=== PATIENT | male | born 1950 | race Caucasian/White ===

== ENCOUNTER 2018-10-23 11:00 | Outpatient (CLI) | payer MEDICARE, OTHER ==
[~2018-10-23] VITALS: Ht 180.3 cm; Wt 100.7 kg
[~2018-10-23 11:00] MED LIST: ACHD5005; ALBU8.5H4 IH; ASCO500T20 GT; ASP81TEC PO; ASPI-983 PO; BENZ100C18 PO; CARV12.5 PO; CARV25TA PO; CHOL500049 PO; CIPR-225 PO; CLPD75T PO; CNC1KV IJ; D50KC PO; FENO145T PO; FENO145T2 PO; HYDR-3455 PO; LRT10T; MELO7.5T46 PO; MULT-1029 PO; OMEG1CAP51 PO; RT-ALBUINH IH; SERT50TA9 PO; SILD100T PO; SITA1TAB2 PO; SITA1TAB6 PO; SMV10T PO; TEST90SO TD; TRAM50TA2 PO; UBID1CAP51 PO; VITA-198 PO; VNL75T PO
[2018-10-23] MEDS ORDERED: OMEG-131 PO (11:06)
[2018-10-23] MEDS ORDERED: FENO145T37 PO (11:06)
[2018-10-23] MEDS ORDERED: UBID1CAP53 PO (11:06)
[2018-10-23] MEDS ORDERED: MULT-1030 PO (11:06)
[2018-10-23] MEDS ORDERED: ZINC50TA51 PO (11:07)
[2018-10-23] MEDS ORDERED: MAGN400T39 PO (11:07)
== END 2018-10-23 11:11 | disposition home or self-care (01) ==
LOC: PREOP 11:00
PROVIDERS: ATTEND Surgery
DX: Z01.818 Encounter for other preprocedural examination (principal)

== ENCOUNTER 2018-10-25 08:43 | Day surgery (SDC) | payer MEDICARE, OTHER ==
[~2018-10-25] VITALS: Ht 180.3 cm; Wt 100.7 kg
[~2018-10-25 08:43] MED LIST changes: +FENO145T37 PO; +MAGN400T39 PO; +MULT-1030 PO; +OMEG-131 PO; +UBID1CAP53 PO; +ZINC50TA51 PO
--- OUTSIDE RECORDS SUMMARY | 2018-10-25 08:48 | XMS REPORT | Continuity of Care Document ---
Author Author [facility] Organization [facility] Address Unknown Phone Unavailable Allergies Active Description Code Type Severity Reaction Onset Reported/Identified Relationship to Patient Clinical Status Yes No Known Drug Allergies [id number] Drug Allergy Mild N/A 04/28/2008 Medications There is no data. Problems Date Dx Coded Attending Type Code Diagnosis Diagnosed By 11/03/2011 Ot 705.83 HIDRADENITIS 11/03/2011 Ot V58.69 OTH MED,LT, CURRENT USE 09/04/2013 KRISTINA JESUS DO Ot 211.3 BENIGN NEOPLASM LG BOWEL 09/04/2013 KRISTINA JESUS DO Ot 562.10 DIVERTICULOSIS COLON (W/O MENT OF HEMORR 09/04/2013 KRISTINA JESUS DO Ot V76.51 SCREEN MAL NEOP-COLON 05/24/2014 VINNY SCHUSTER MD Ot 721.3 LUMBOSACRAL SPONDYLOSIS 05/24/2014 VINNY SCHUSTER MD Ot 722.52 LUMB/LUMBOSAC DISC DEGEN 05/24/2014 VINNY SCHUSTER MD Ot 729.1 MYALGIA AND MYOSITIS NOS 05/24/2014 VINNY SCHUSTER MD Ot V58.69 OTH MED,LT,CURRENT USE 06/05/2014 Ot 780.4 06/05/2014 Ot 784.0 06/05/2014 Ot 433.30 06/05/2014 Ot 250.00 06/05/2014 Ot 705.83 06/05/2014 Ot V72.63 06/05/2014 Ot V72.81 06/05/2014 AKIKO BROCK C MEDIA ACCOUNT EXECUTIVE Ot 564.00 06/05/2014 ROMEO BROCKRICIA C MEDIA ACCOUNT EXECUTIVE Ot 571.8 06/05/2014 ROMEO BROCKRICIA C MEDIA ACCOUNT EXECUTIVE Ot 789.09 06/17/2014 MARÍA MCGILL DO Ot 722.52 06/17/2014 MARÍA MCGILL DO Ot 733.90 06/17/2014 MCGILL DO MARÍA Wiggins Ot 722.52 06/17/2014 MCGILL DO, MARÍA Wiggins Ot 733.90 06/17/2014 MCGILL DO MARÍA Wiggins Ot 722.52 06/17/2014 MCGILL DO, MARÍA Wiggins Ot 733.90 06/17/2014 MCGILL DO MARÍA Wiggins Ot 722.52 06/17/2014 MCGILL DO MARÍA Wiggins Ot 733.90 06/19/2014 MCGILL DO MARÍA Wiggins Ot 722.52 06/19/2014 MCGILL DO MARÍA Wiggins Ot 733.90 09/03/2014 MCGILL DO MARÍA Wiggins Ot 722.52 09/03/2014 MCGILL DO MARÍA Wiggins Ot 733.90 09/10/2014 MCGILL DO MARÍA Wiggins Ot 722.52 09/10/2014 MCGILL DO MARÍA Wiggins Ot 733.90 10/28/2014 VINNY SCHUSTER MD Ot 722.52 LUMB/LUMBOSAC DISC DEGEN 03/04/2015 Ot 780.4 03/04/2015 Ot 784.0 03/04/2015 Ot 433.30 03/04/2015 Ot 250.00 03/04/2015 Ot 705.83 03/04/2015 Ot V72.63 03/04/2015 Ot V72.81 03/04/2015 Ot 414.00 03/04/2015 AKIKO MCGILL FLAKEBOARD LINE TENDER Ot 715.37 03/04/2015 KRISTINA JESUS DO Ot V72.84 03/04/2015 AKIKO BROCK MEDIA ACCOUNT EXECUTIVE Ot 564.00 03/04/2015 AKIKO BROCK MEDIA ACCOUNT EXECUTIVE Ot 571.8 03/04/2015 AKIKO BROCK MEDIA ACCOUNT EXECUTIVE Ot 789.09 03/04/2015 AKIKO MCGILL FLAKEBOARD LINE TENDER Ot 241.0 03/04/2015 MARÍA MCGILL DO Ot 722.52 03/04/2015 MCGILL DO MARÍA Rosalie Ot 733.90 04/01/2015 MCGILLMARÍA CHEUNG DO Ot 780.2 04/11/2015 MARÍA MCGILL DO Ot 780.2 04/11/2015 MARIO ALBERTO GODFREY, TWILA Yoon Ot 478.5 04/11/2015 TWILA LLANES MD Ot V72.63 04/11/2015 TWILA LLANES MD Ot V74.8 04/11/2015 TWILA LLANES MD Ot 305.1 TOBACCO USE DISORDER 04/11/2015 TWILA LLANES MD Ot 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 04/11/2015 TWILA LLANES MD Ot 784.42 DYSPHONIA 04/11/2015 TWILA LLANES MD Ot V58.69 OTH MED,LT,CURRENT USE 05/22/2015 TWILA LLANES MD Ot 478.5 05/22/2015 TWILA LLANES MD Ot V72.63 05/22/2015 TWILA LLANES MD Ot V74.8 08/11/2015 Ot 780.4 08/11/2015 Ot 784.0 08/11/2015 Ot 433.30 08/11/2015 Ot 250.00 08/11/2015 Ot 705.83 08/11/2015 Ot V72.63 08/11/2015 Ot V72.81 08/11/2015 MARÍA MCGILL DO Ot 722.52 08/11/2015 MARÍA MCGILL DO Ot 733.90 10/24/2015 Ot M51.16 INTERVERTEBRAL DISC DISORDERS W RADICULO 10/24/2015 Ot Z79.899 OTHER SNF (CURRENT) DRUG THERAPY 11/03/2015 Ot M51.16 11/03/2015 Ot Z79.899 11/21/2015 VINNY SCHUSTER MD Ot M51.16 INTERVERTEBRAL DISC DISORDERS W RADICULO 11/21/2015 VINNY SCHUSTER MD Ot Z79.899 OTHER SNF (CURRENT) DRUG THERAPY 11/21/2015 VINNY SCHUSTER MD Ot M54.5 LOW BACK PAIN 12/11/2015 VINNY SCHUSTER MD Ot M54.5 LOW BACK PAIN 12/24/2015 Ot 250.00 12/24/2015 Ot 272.4 12/24/2015 Ot 401.9 12/24/2015 Ot 412 12/24/2015 Ot 789.00 12/24/2015 Ot 789.01 12/24/2015 Ot 790.4 12/24/2015 Ot V58.66 12/24/2015 Ot V58.69 01/22/2016 VINNY SCHUSTER MD Ot M54.5 LOW BACK PAIN 04/24/2016 Ot 250.00 04/24/2016 Ot 272.4 04/24/2016 Ot 401.9 04/24/2016 Ot 412 04/24/2016 Ot 789.00 04/24/2016 Ot 789.01 04/24/2016 Ot 790.4 04/24/2016 Ot V58.66 04/24/2016 Ot V58.69 04/30/2016 Ot 250.00 DIAB CATRINA WO COMPL, TYPE II OR UNSPEC TY 04/30/2016 Ot 705.83 HIDRADENITIS 04/30/2016 Ot V72.63 PRE- PROCEDURAL LABORATORY EXAMINATION 04/30/2016 Ot V72.81 EXAM-PRE- OPERATIVE CARDIOVASCULAR 04/30/2016 Ot 414.00 CORON ATHEROSCLER NOS TYPE VESSEL, NATIV 04/30/2016 AKIKO MCGILL Ot 715.37 LOC OSTEOARTH NOS-ANKLE 04/30/2016 KRISTINA JESUS DO Ot V72.84 EXAM PRE-OPERATIVE NOS 04/30/2016 RIDAKIKO HUERTA MEDIA ACCOUNT EXECUTIVE Ot 564.00 UNSPEC CONSTIPATION 04/30/2016 AKIKO BROCK MEDIA ACCOUNT EXECUTIVE Ot 571.8 CHRONIC LIVER DIS NEC 04/30/2016 AKIKO BROCK MEDIA ACCOUNT EXECUTIVE Ot 789.09 ABDOMINAL PAIN, OTHER SPECIFIED SITE 04/30/2016 AKIKO MCGILL FLAKEBOARD LINE TENDER Ot 241.0 NONTOX UNINODULAR GOITER 04/30/2016 MARÍA MCGILL DO Ot 722.52 LUMB/LUMBOSAC DISC DEGEN 04/30/2016 MARÍA MCGILL DO Ot 733.90 BONE CARTILAGE DIS NOS 04/30/2016 MARÍA MCGILL DO Ot 780.2 SYNCOPE AND COLLAPSE 04/30/2016 TWILA LLANES MD Ot 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 04/30/2016 TWILA LLANES MD Ot V72.63 PRE-PROCEDURAL LABORATORY EXAMINATION 04/30/2016 TWILA LLANES MD Ot V74.8 SCREEN-BACTERIAL DIS NEC 04/30/2016 VINNY SCHUSTER MD Ot M54.5 LOW BACK PAIN 04/30/2016 MARÍA MCGILL DO Ot 722.52 LUMB/LUMBOSAC DISC DEGEN 04/30/2016 MARÍA MCGILL DO Ot 733.90 BONE CARTILAGE DIS NOS 04/30/2016 MARÍA MCGILL DO Ot 722.52 LUMB/LUMBOSAC DISC DEGEN 04/30/2016 MARÍA MCGILL DO Ot 733.90 BONE CARTILAGE DIS NOS 04/30/2016 MARÍA MCGILL DO, Ot I25.10 ATHSCL HEART DISEASE OF [place] CORONARY 04/30/2016 MARÍA MCGILL DO Ot I25.10 ATHSCL HEART DISEASE OF [place] CORONARY 04/30/2016 MARÍA MCGILL DO Ot 722.52 LUMB/LUMBOSAC DISC DEGEN 04/30/2016 MARÍA MCGILL DO Ot 733.90 BONE CARTILAGE DIS NOS 04/30/2016 MARÍA MCGILL DO Ot I25.10 ATHSCL HEART DISEASE OF [place] CORONARY 04/30/2016 MARÍA MCGILL DO Ot I25.10 ATHSCL HEART DISEASE OF [place] CORONARY 05/03/2016 MARÍA MCGILL DO, Ot I25.10 ATHSCL HEART DISEASE OF [place] CORONARY 05/06/2016 MARÍA MCGILL DO, Ot I25.10 ATHSCL HEART DISEASE OF [place] CORONARY 05/21/2016 MARÍA MCGILL DO, Ot I25.10 ATHSCL HEART DISEASE OF [place] CORONARY 05/27/2016 KRISTINA JESUS DO Ot E11.9 TYPE 2 DIABETES MELLITUS WITHOUT COMPLIC 05/27/2016 KRISTINA JESUS DO Ot F17.210 NICOTINE DEPENDENCE, CIGARETTES, UNCOMPL 05/27/2016 KRISTINA JESUS DO Ot F43.10 POST-TRAUMATIC STRESS DISORDER, UNSPECIF 05/27/2016 KRISTINA JESUS DO Ot I25.10 ATHSCL HEART DISEASE OF [place] CORONARY 05/27/2016 KRISTINA JESUS DO Ot J44.9 CHRONIC OBSTRUCTIVE PULMONARY DISEASE, U 05/27/2016 KRISTINA JESUS DO Ot K59.03 DRUG INDUCED CONSTIPATION 05/27/2016 KRISTINA JESUS DO Ot T40.2X5A ADVERSE EFFECT OF OTHER OPIOIDS, INITIAL 05/27/2016 KRISTINA JESUS DO Ot Z95.5 PRESENCE OF CORONARY ANGIOPLASTY IMPLANT 05/27/2016 KRISTINA JESUS DO Ot E11.9 TYPE 2 DIABETES MELLITUS WITHOUT COMPLIC 05/27/2016 KRISTINA JESUS DO Ot F17.210 NICOTINE DEPENDENCE, CIGARETTES, UNCOMPL 05/27/2016 KRISTINA JESUS DO Ot F43.10 POST-TRAUMATIC STRESS DISORDER, UNSPECIF 05/27/2016 KRISTINA JESUS DO Ot I25.10 ATHSCL HEART DISEASE OF [place] CORONARY 05/27/2016 KRISTINA JESUS DO Ot J44.9 CHRONIC OBSTRUCTIVE PULMONARY DISEASE, U 05/27/2016 KRISTINA JESUS DO Ot K59.03 DRUG INDUCED CONSTIPATION 05/27/2016 KRISTINA JESUS DO Ot T40.2X5A ADVERSE EFFECT OF OTHER OPIOIDS, INITIAL 05/27/2016 KRISTINA JESUS DO Ot Z95.5 PRESENCE OF CORONARY ANGIOPLASTY IMPLANT 06/08/2016 MARÍA MCGILL DO Ot I25.10 ATHSCL HEART DISEASE OF [place] CORONARY 06/24/2016 Ot 250.00 06/24/2016 Ot 272.4 06/24/2016 Ot 401.9 06/24/2016 Ot 412 06/24/2016 Ot 789.00 06/24/2016 Ot 789.01 06/24/2016 Ot 790.4 06/24/2016 Ot V58.66 06/24/2016 Ot V58.69 09/22/2016 Ot 250.00 09/22/2016 Ot 272.4 09/22/2016 Ot 401.9 09/22/2016 Ot 412 09/22/2016 Ot 789.00 09/22/2016 Ot 789.01 09/22/2016 Ot 790.4 09/22/2016 Ot V58.66 09/22/2016 Ot V58.69 06/24/2017 Ot 250.00 06/24/2017 Ot 272.4 06/24/2017 Ot 401.9 06/24/2017 Ot 412 06/24/2017 Ot 789.00 06/24/2017 Ot 789.01 06/24/2017 Ot 790.4 06/24/2017 Ot V58.66 06/24/2017 Ot V58.69 09/22/2018 Ot 250.00 09/22/2018 Ot 272.4 09/22/2018 Ot 401.9 09/22/2018 Ot 412 09/22/2018 Ot 789.00 09/22/2018 Ot 789.01 09/22/2018 Ot 790.4 09/22/2018 Ot V58.66 09/22/2018 Ot V58.69 10/20/2018 KACIE LAMBERT MD, Ot Z01.818 ENCOUNTER FOR OTHER PREPROCEDURAL EXAMIN 10/23/2018 KACIE LAMBERT MD, Ot Z01.818 ENCOUNTER FOR OTHER PREPROCEDURAL EXAMIN 10/23/2018 KACIE LAMBERT MD, Ot Z01.818 ENCOUNTER FOR OTHER PREPROCEDURAL EXAMIN 10/23/2018 KRISTINA JESUS DO Ot V72.84 EXAM PRE-OPERATIVE NOS 10/23/2018 RIDBRADLEY AKIKO Brownlee APRN Ot 564.00 UNSPEC CONSTIPATION 10/23/2018 RIDINGSAKIKO APRN Ot 571.8 CHRONIC LIVER DIS NEC 10/23/2018 RIDINGS, AKIKO Brownlee APRN Ot 789.09 ABDOMINAL PAIN, OTHER SPECIFIED SITE 10/23/2018 AKIKO MCGILL FLAKEBOARD LINE TENDER Ot 241.0 NONTOX UNINODULAR GOITER 10/23/2018 MARÍA MCGILL DO Ot 722.52 LUMB/LUMBOSAC DISC DEGEN 10/23/2018 MARÍA MCGILL DO Ot 733.90 BONE CARTILAGE DIS NOS 10/23/2018 MARÍA MCGILL DO Ot 780.2 SYNCOPE AND COLLAPSE 10/23/2018 TWILA LLANES MD Ot 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 Results Test Result Range Complete blood count (CBC) with automated white blood cell (WBC) differential - 05/27/16 05:37 Blood leukocytes automated count (number/volume) 13.6 10*3/uL 4.3-11.0 Blood erythrocytes automated count (number/volume) 4.72 10*6/uL 4.35-5.85 Venous blood hemoglobin measurement (mass/volume) 13.6 g/dL 13.3-17.7 Blood hematocrit (volume fraction) 41 % 40-54 Automated erythrocyte mean corpuscular volume 86 [foz_us] 80-99 Automated erythrocyte mean corpuscular hemoglobin (mass per erythrocyte) 29 pg 25-34 Automated erythrocyte mean corpuscular hemoglobin concentration measurement ( mass/volume) 33 g/dL 32-36 Automated erythrocyte distribution width ratio 14.8 % 10.0-14.5 Automated blood platelet count (count/volume) 435 10*3/uL 130-400 Automated blood platelet mean volume measurement 9.8 [foz_us] 7.4-10.4 Automated blood neutrophils/100 leukocytes 74 % 42-75 Automated blood lymphocytes/100 leukocytes 16 % 12-44 Blood monocytes/100 leukocytes 9 % 0-12 Automated blood eosinophils/100 leukocytes 1 % 0-10 Automated blood basophils/100 leukocytes 1 % 0-10 Blood neutrophils automated count (number/volume) 10.1 10*3 1.8-7.8 Blood lymphocytes automated count (number/volume) 2.2 10*3 1.0-4.0 Blood monocytes automated count (number/volume) 1.2 10*3 0.0-1.0 Automated eosinophil count 0.1 10*3/uL 0.0-0.3 Automated blood basophil count (count/volume) 0.1 10*3/uL 0.0-0.1 Comprehensive metabolic panel - 05/27/16 05:37 Serum or plasma sodium measurement (moles/volume) 136 mmol/L 135-145 Serum or plasma potassium measurement (moles/volume) 3.6 mmol/L 3.6-5.0 Serum or plasma chloride measurement (moles/volume) 106 mmol/L 98-107 Carbon dioxide 20 mmol/L 21-32 Serum or plasma anion gap determination (moles/volume) 10 mmol/L 5-14 Serum or plasma urea nitrogen measurement (mass/volume) 9 mg/dL 7-18 Serum or plasma creatinine measurement (mass/volume) 0.78 mg/dL 0.60-1.30 Serum or plasma urea nitrogen/creatinine mass ratio 12 NRG Serum or plasma creatinine measurement with calculation of estimated glomerular filtration rate > NRG Serum or plasma glucose measurement (mass/volume) 128 mg/dL 70-105 Serum or plasma calcium measurement (mass/volume) 8.6 mg/dL 8.5-10.1 Serum or plasma total bilirubin measurement (mass/volume) 0.4 mg/dL 0.1-1.0 Serum or plasma alkaline phosphatase measurement (enzymatic activity/volume) 86 U/L 40-136 Serum or plasma aspartate aminotransferase measurement (enzymatic activity/ volume) 19 U/L 5-34 Serum or plasma alanine aminotransferase measurement (enzymatic activity/volume ) 19 U/L 0-55 Serum or plasma protein measurement (mass/volume) 6.4 g/dL 6.4-8.2 Serum or plasma albumin measurement (mass/volume) 3.5 g/dL 3.2-4.5 Encounters ACCT No. Visit Date/Time Discharge Status Pt. Type Provider Facility Loc./Unit Complaint [id number] 10/23/2018 11:00:00 10/23/2018 11:11:00 DIS Outpatient KACIE LAMBERT MD [facility] PREOP COLONOSCOPY [id number] 05/26/2016 04:18:00 05/27/2016 16:00:00 DIS Inpatient KRISTINA JESUS DO [facility] 4TH ABD PAIN,CONSTIPATION [id number] 04/30/2016 06:44:00 04/30/2016 23:59:59 CLS Outpatient MARÍA MCGILL DO [facility] CARD I25.10- ATHEROSCLEROTIC HEART DISEASE OF [place] COR [id number] 11/21/2015 08:11:00 11/21/2015 09:06:00 DIS Outpatient VINNY SCHUSTER MD [facility] CARD DISC DISORDER [id number] 11/20/2015 11:02:00 11/20/2015 23:59:59 CLS Outpatient VINNY SCHUSTER MD [facility] RAD LOW BACK PAIN [id number] 04/11/2015 07:55:00 04/11/2015 11:45:00 DIS Outpatient TWILA LLANES MD [facility] SDC LEFT VOCAL CORD LESION [id number] 04/08/2015 09:08:00 04/08/2015 23:59:59 CLS Outpatient TWILA LLANES MD [facility] PREOP LEFT VOCAL CORD LESION [id number] 03/04/2015 06:41:00 03/04/2015 23:59:59 CLS Outpatient MARÍA MCGILL DO [facility] CARD SYNCOPE [id number] 10/28/2014 15:09:00 10/28/2014 17:38:00 DIS Outpatient VINNY SCHUSTER MD [facility] CARD DDD [id number] 05/24/2014 08:31:00 05/24/2014 10:21:00 DIS Outpatient VINNY SCHUSTER MD [facility] CARD DDD [id number] 05/17/2014 09:54:00 05/17/2014 23:59:59 CLS Outpatient MARÍA MCGILL DO [facility] RAD CYSTIC LEISON L-3, [id number] 09/11/2013 12:42:00 09/11/2013 23:59:59 CLS Outpatient AKIKO MCGILL FLAKEBOARD LINE TENDER [facility] RAD THYROMEGLY, THYROID MASS [id number] 09/04/2013 12:04:00 09/04/2013 15:25:00 DIS Outpatient KRISTINA JESUS DO [facility] SDC SCREENING [id number] 08/29/2013 07:30:00 08/29/2013 23:59:59 CLS Outpatient KRISTINA JESUS DO [facility] PREOP SCREENING [id number] 08/27/2013 12:17:00 08/27/2013 23:59:59 CLS Outpatient RIDINGSAKIKO MEDIA ACCOUNT EXECUTIVE [facility] RAD RT ABD PAIN, CONSTIPATION [id number] 08/27/2013 12:08:00 08/27/2013 23:59:59 CLS Preadmit RIDINGSAKIKO MEDIA ACCOUNT EXECUTIVE [facility] RAD RT ABD PAIN, CONSTIPATION [id number] 12/21/2012 12:17:00 12/21/2012 23:59:59 CLS Outpatient AKIKO MCGILL FLAKEBOARD LINE TENDER [facility] RAD L FOOT PAIN [id number] 10/25/2018 09:30:00 PEN Preadmit KACIE LAMBERT MD [facility] ENDO SCREENING/HX POLYPS [id number] 10/30/2015 08:36:00 Document Registration [id number] 10/10/2012 06:44:00 Document Registration [id number] 11/03/2011 05:39:00 Document Registration [id number] 11/01/2011 08:01:00 Document Registration [id number] 07/07/2010 06:09:00 Document Registration [id number] 07/03/2010 10:43:00 Document Registration [id number] 04/27/2008 07:10:00 Document Registration
[2018-10-25] MEDS ORDERED: NS IV 500 ML 500 ML IV PRN (08:51)
[2018-10-25] MEDS ORDERED: NS IV 500 ML 500 ML ONE (08:55)
[2018-10-25] MEDS ORDERED: MIDAZOLAM 2 MG/2 ML (VERSED) VIAL IVP ONE (09:00)
[2018-10-25] MEDS ORDERED: fentaNYL INJECTION 100 MCG/2 ML AMP IVP ONE (09:00)
[2018-10-25] MEDS ORDERED: LIDOCAINE JELLY 2% 6 ML SYRINGE MM PRN (09:00)
[2018-10-25 09:11] VITALS: BP 146/78
[2018-10-25] MEDS ORDERED: MIDAZOLAM 2 MG/2 ML (VERSED) VIAL ONE ×6 (09:31→09:52)
[2018-10-25] MEDS ORDERED: fentaNYL INJECTION 100 MCG/2 ML AMP ONE (09:31)
[2018-10-25] MEDS ORDERED: LIDOCAINE JELLY 2% 6 ML SYRINGE ONE (09:31)
--- NOTE | 2018-10-25 10:18 | Conscious Sedation/ASA ---
Conscious Sedation Pre-Proced Time 09:00 ASA Score 2 For ASA 3 and 4: Consider anesthesia and medical clearance. Also, for patients with a history of failed moderate sedation consider anesthesia. Airway Lungs Heart ASA score ASA 1: a normal healthy patient ASA 2: a patient with a mild systemic disease (mid diabetes, controlled hypertension, obesity ASA 3: a patient with a severe systemic disease that limits activity (angina , COPD, prior Myocardial infarction) ASA 4: a patient with an incapacitating disease that is a constant threat to life (CHF, renal failure) ASA 5: a moribund patient not expected to survive 24 hrs. (ruptured aneurysm) ASA 6: a declared brain- patient whose organs are being harvested. For emergent operations, add the letter E after the classification Mallampati Classification Grade 2 Sedation Plan Analgesia, Amnesia, Plan communicated to team members, Discussed options with patient/fam, Discussed risks with patient/fam The patient is an appropriate candidate to undergo the planned procedure, sedation, and anesthesia. The patient immediately re-assessed prior to indication. KACIE LAMBERT MD Oct 25, 2018 10:18
--- NOTE | 2018-10-25 10:19 | Progress Note-Pre Operative ---
Pre-Operative Progress Note H&P Reviewed The H&P was reviewed, patient examined and no changes noted. Date Seen by Provider: Oct 25, 2018 Time Seen by Provider: 09:00 Date H&P Reviewed: Oct 25, 2018 Time H&P Reviewed: 09:00 Pre-Operative Diagnosis: screening colonoscopy KACIE LAMBERT MD Oct 25, 2018 10:19
--- NOTE | 2018-10-25 10:20 | Progress Note-Post Operative ---
Post-Operative Progess Note Surgeon (s)/Stone Banker (s) Surgeon KACIE LAMBERT MD Stone Banker: none Pre-Operative Diagnosis screening colonoscopy Post-Operative Diagnosis mild chronic stage 2 ext and int hemorrhoids. Procedure & Operative Findings Date of Procedure 10/25/18 Procedure Performed/Findings Colonoscopy Anesthesia Type cs Estimated Blood Loss Estimated blood loss (mL): minimal Specimens/Packing Specimens Removed none KACIE LAMBERT MD Oct 25, 2018 10:20
--- NOTE | 2018-10-25 10:22 | Discharge Inst-Surgical ---
D/C Lap Instructions-FAUSTO Follow Up 10 years Activity as tolerated High Fiber Diet 25g or more per day Avoid Alcohol, Caffeine, Spicy [place] and Acid foods. Drink 64 fluid oz or more of fluids per day. Symptoms to Report: Fever over 101 degree F, Nausea/Vomiting If any problems/questions: Contact your physician or go to Emergency Room KACIE LAMBERT MD Oct 25, 2018 10:22
[2018-10-25 10:30] VITALS: BP 110/60
[2018-10-25] MEDS ORDERED: HYDROcodone/APAP 5 MG/325 MG (LORTAB) TAB PO PRN (10:30)
[2018-10-25] MEDS ORDERED: morphine INJ 10 MG/ML 1ML (SYR OR VIAL) IV PRN (10:30)
[2018-10-25] MEDS ORDERED: ONDANSETRON 4 MG/2 ML (SDV) Z0FRAN IV PRN (10:30)
[2018-10-25] MEDS ORDERED: ACETAMINOPHEN 325 MG TABLET PO PRN (10:30)
[2018-10-25 11:00] VITALS: BP 131/73
[2018-10-25 11:10] VITALS: BP 131/73
--- NOTE | 2018-10-25 14:40 | OPERATIVE REPORT ---
DATE OF SERVICE: 10/25/2018 ATTENDING PRIMARY CARE PHYSICIAN: Dr. Miguel Barahona. PREOPERATIVE DIAGNOSIS: Screening colonoscopy. POSTOPERATIVE DIAGNOSIS: Mild chronic stage II external and internal hemorrhoids. PROCEDURE: Colonoscopy. SURGEON: Kacie Lambert MD ANESTHESIA: Conscious sedation. ESTIMATED BLOOD LOSS: Minimal. FINDINGS: Mild chronic stage II external and internal hemorrhoids, not actively edematous nor inflamed and no bleeding. The remainder of the rectum and colon were normal. There were no polyps or any neoplasms identified. DISPOSITION: The patient tolerated the procedure well. The patient is a 68-year-old male in need of a screening colonoscopy. His last colonoscopy was around 2013 and he states that he did have some polyps which were biopsied and found to be benign. He states that he is otherwise doing well. He does report occasional episodes of constipation; however, no red blood per rectum nor any dark tarry stools. He also does not report any family history of colon cancer. DESCRIPTION OF PROCEDURE: The patient was brought to the endoscopy suite, laid in the left lateral decubitus position. After adequate IV pain and sedative medications and conscious sedation anesthesia, a digital rectal examination was performed. Mild chronic stage II external and internal hemorrhoids were identified, which were not actively edematous nor inflamed and no bleeding. Normal sphincter tone was felt and there were no palpable masses. Prostate gland was palpable and appeared normal. The endoscope was then intubated to the anus and rectum gently insufflated. The endoscope was then advanced through the valves of [place] of the rectum with no polyps or any neoplasms identified. The endoscope was then advanced to the sigmoid colon where no diverticulosis identified. The endoscope was then advanced to the remainder of the descending, transverse and ascending colon to the cecum. These segments were normal. There were no polyps or any neoplasms identified throughout the colon or rectum. The endoscope was then slowly withdrawn while taking a second look and suctioning of residual air with no additional findings. The patient tolerated the procedure well. We will recommend medical management with high fiber diet with at least 30 grams of fiber daily as well as significant amounts of water on a daily basis to promote soft stools daily as well. He does not need another colonoscopy for another 10 years; however, sooner if he becomes symptomatic. Job ID: [id number] DocumentID: [id number] Dictated Date: 10/25/2018 10:35:19 Senior Hardware Engineer Date: 10/25/2018 14:39:58 Dictated By: KACIE LAMBERT MD
== END 2018-10-25 11:10 | disposition home or self-care (01) ==
LOC: ENDO 08:43
PROVIDERS: ATTEND Surgery
DX: Z12.11 Encounter for screening for malignant neoplasm of colon (principal); K64.1 Second degree hemorrhoids; Z86.010 Personal history of colon polyps; I10 Essential (primary) hypertension; E78.00 Pure hypercholesterolemia, unspecified; I25.10 Atherosclerotic heart disease of native coronary artery without angina pectoris; E11.9 Type 2 diabetes mellitus without complications; Z79.82 Long term (current) use of aspirin; Z79.84 Long term (current) use of oral hypoglycemic drugs; Z79.899 Other long term (current) drug therapy; Z87.891 Personal history of nicotine dependence; Z80.41 Family history of malignant neoplasm of ovary

== ENCOUNTER 2019-11-01 10:53 | Outpatient (RCR) | payer MEDICARE, OTHER ==
[2019-08-10 11:00] LABS: ABSOLUTE RETIC # 147 10e9/L (24-90); BASOPHILS # (AUTO) 0.5 10^3/uL (0.0-0.1); BASOPHILS % (AUTO) 3 % (0-10); EOSINOPHILS # (AUTO) 0.8 10^3/uL (0.0-0.3); EOSINOPHILS % (AUTO) 5 % (0-10); HEMATOCRIT 56 % (40-54); LYMPHOCYTES # (AUTO) 2.3 X 10^3 (1.0-4.0); LYMPHOCYTES % (AUTO) 14 % (12-44); MEAN CORPUSCULAR HEMOGLOBIN 27 PG (25-34); MEAN CORPUSCULAR HGB CONC 32 G/DL (32-36); MEAN CORPUSCULAR VOLUME 83 FL (80-99); MONOCYTES # (AUTO) 1.2 X 10^3 (0.0-1.0); MONOCYTES % (AUTO) 7 % (0-12); NEUTROPHILS # (AUTO) 11.9 X 10^3 (1.8-7.8); NEUTROPHILS % (AUTO) 72 % (42-75); PLATELET COUNT 918 10^3/uL (130-400); RED CELL DISTRIBUTION WIDTH 19.3 % (10.0-14.5); RETICULOCYTE % 2.17 % (0.50-2.40); WHITE BLOOD COUNT 16.7 10^3/uL (4.3-11.0)
[2019-08-10 11:30] LABS: URIC ACID 4.9 MG/DL (2.6-7.2)
[2019-08-10 12:49] LABS: ANISOCYTOSIS SLIGHT; BAND NEUTROPHILS 2 %; BASOPHILS % (MANUAL) 0 %; EOSINOPHILS % (MANUAL) 6 %; LYMPHOCYTES % (MANUAL) 12 %; MONOCYTES % (MANUAL) 4 %; NEUTROPHILS % (MANUAL) 76 %; TOXIC GRANULATION/VACUOLAZATIO 1+
[2019-09-19 08:58] LABS: ABSOLUTE RETIC # 165 10e9/L (24-90); BASOPHILS # (AUTO) 0.6 10^3/uL (0.0-0.1); BASOPHILS % (AUTO) 3 % (0-10); EOSINOPHILS # (AUTO) 0.9 10^3/uL (0.0-0.3); EOSINOPHILS % (AUTO) 5 % (0-10); HEMATOCRIT 56 % (40-54); LYMPHOCYTES # (AUTO) 2.3 X 10^3 (1.0-4.0); LYMPHOCYTES % (AUTO) 12 % (12-44); MEAN CORPUSCULAR HEMOGLOBIN 26 PG (25-34); MEAN CORPUSCULAR HGB CONC 32 G/DL (32-36); MEAN CORPUSCULAR VOLUME 80 FL (80-99); MEAN PLATELET VOLUME 10.2 FL (7.4-10.4); MONOCYTES # (AUTO) 1.3 X 10^3 (0.0-1.0); MONOCYTES % (AUTO) 7 % (0-12); NEUTROPHILS # (AUTO) 13.6 X 10^3 (1.8-7.8); NEUTROPHILS % (AUTO) 73 % (42-75); PLATELET COUNT 860 10^3/uL (130-400); RED CELL DISTRIBUTION WIDTH 19.4 % (10.0-14.5); RETICULOCYTE % 2.36 % (0.50-2.40); WHITE BLOOD COUNT 18.6 10^3/uL (4.3-11.0)
[2019-09-19 10:27] LABS: ANISOCYTOSIS SLIGHT; BAND NEUTROPHILS 4 %; BASOPHILS % (MANUAL) 1 %; EOSINOPHILS % (MANUAL) 3 %; LYMPHOCYTES % (MANUAL) 14 %; MONOCYTES % (MANUAL) 5 %; MYELOCYTES % 1 %; NEUTROPHILS % (MANUAL) 72 %
[~2019-11-01 10:53] MED LIST changes: +FENO145T26 PO; -FENO145T37 PO; +LIDOCAINE 1% 20 ML (XYLOCAINE) VIAL CANCER CTR INJ ONE; +LIDOCAINE 1% 20 ML (XYLOCAINE) VIAL CANCER CTR ONE; -TRAM50TA2 PO; +TRM50T PO
[2019-11-01 11:03] LABS: BASOPHILS # (AUTO) 0.5 10^3/uL (0.0-0.1); BASOPHILS % (AUTO) 3 % (0-10); EOSINOPHILS # (AUTO) 0.7 10^3/uL (0.0-0.3); EOSINOPHILS % (AUTO) 5 % (0-10); HEMATOCRIT 53 % (40-54); HEMOGLOBIN 16.9 G/DL (13.3-17.7); LYMPHOCYTES # (AUTO) 2.3 X 10^3 (1.0-4.0); LYMPHOCYTES % (AUTO) 15 % (12-44); MEAN CORPUSCULAR HEMOGLOBIN 26 PG (25-34); MEAN CORPUSCULAR HGB CONC 32 G/DL (32-36); MEAN CORPUSCULAR VOLUME 80 FL (80-99); MEAN PLATELET VOLUME 10.1 FL (7.4-10.4); MONOCYTES # (AUTO) 1.2 X 10^3 (0.0-1.0); MONOCYTES % (AUTO) 8 % (0-12); NEUTROPHILS # (AUTO) 10.5 X 10^3 (1.8-7.8); NEUTROPHILS % (AUTO) 69 % (42-75); PLATELET COUNT 706 10^3/uL (130-400); RED CELL DISTRIBUTION WIDTH 20.3 % (10.0-14.5); WHITE BLOOD COUNT 15.1 10^3/uL (4.3-11.0)
== END 2019-11-08 | disposition home or self-care (01) ==
LOC: EDBD → ONC 10:53
PROVIDERS: ATTEND Internal Medicine Hematology & Oncology
DX: D72.829 Elevated white blood cell count, unspecified (principal); D75.1 Secondary polycythemia; D47.3 Essential (hemorrhagic) thrombocythemia; J44.9 Chronic obstructive pulmonary disease, unspecified; E78.00 Pure hypercholesterolemia, unspecified; I10 Essential (primary) hypertension; E11.9 Type 2 diabetes mellitus without complications
CPT/HCPCS: 38221; 81206; 81270; 82668; 83615; 84550; 85007; 85025; 85027; 85045; 88184; 88185; 88305; 88311; 88313; 99195; 99213; 99214

== ENCOUNTER 2019-12-13 08:49 | Outpatient (RCR) | payer MEDICARE, OTHER ==
[2019-11-29 10:37] LABS: BASOPHILS # (AUTO) 0.4 10^3/uL (0.0-0.1); BASOPHILS % (AUTO) 3 % (0-10); EOSINOPHILS # (AUTO) 0.5 10^3/uL (0.0-0.3); EOSINOPHILS % (AUTO) 3 % (0-10); HEMATOCRIT 51 % (40-54); HEMOGLOBIN 16.4 G/DL (13.3-17.7); LYMPHOCYTES # (AUTO) 2.1 X 10^3 (1.0-4.0); LYMPHOCYTES % (AUTO) 15 % (12-44); MEAN CORPUSCULAR HEMOGLOBIN 26 PG (25-34); MEAN CORPUSCULAR HGB CONC 32 G/DL (32-36); MEAN CORPUSCULAR VOLUME 81 FL (80-99); MEAN PLATELET VOLUME 9.7 FL (7.4-10.4); MONOCYTES % (AUTO) 7 % (0-12); NEUTROPHILS # (AUTO) 10.1 X 10^3 (1.8-7.8); NEUTROPHILS % (AUTO) 72 % (42-75); PLATELET COUNT 593 10^3/uL (130-400); RED CELL DISTRIBUTION WIDTH 21.4 % (10.0-14.5); WHITE BLOOD COUNT 14.1 10^3/uL (4.3-11.0)
[2019-11-29 10:57] LABS: BILIRUBIN,TOTAL 0.5 MG/DL (0.1-1.0); CALCIUM 9.6 MG/DL (8.5-10.1); CREATININE SERUM 1.37 MG/DL (0.60-1.30); POTASSIUM 4.3 MMOL/L (3.6-5.0); TOTAL PROTEIN 7.9 GM/DL (6.4-8.2)
[~2019-12-13 08:49] MED LIST changes: -LIDOCAINE 1% 20 ML (XYLOCAINE) VIAL CANCER CTR INJ ONE; -LIDOCAINE 1% 20 ML (XYLOCAINE) VIAL CANCER CTR ONE
== END 2019-12-26 16:18 | disposition home or self-care (01) ==
LOC: ONC 08:49
PROVIDERS: ATTEND Internal Medicine Hematology & Oncology
DX: D45 Polycythemia vera (principal); D72.829 Elevated white blood cell count, unspecified; D47.3 Essential (hemorrhagic) thrombocythemia; J44.9 Chronic obstructive pulmonary disease, unspecified; E78.00 Pure hypercholesterolemia, unspecified; I10 Essential (primary) hypertension; E11.9 Type 2 diabetes mellitus without complications
CPT/HCPCS: 80053; 82728; 85025; 99195

== ENCOUNTER 2020-02-21 12:28 | Outpatient (RCR) | payer MEDICARE, OTHER ==
[2019-12-27 13:30] LABS: BASOPHILS # (AUTO) 0.3 10^3/uL (0.0-0.1); BASOPHILS % (AUTO) 3 % (0-10); EOSINOPHILS # (AUTO) 0.2 10^3/uL (0.0-0.3); EOSINOPHILS % (AUTO) 3 % (0-10); HEMATOCRIT 47 % (40-54); HEMOGLOBIN 14.9 G/DL (13.3-17.7); LYMPHOCYTES # (AUTO) 2.2 X 10^3 (1.0-4.0); LYMPHOCYTES % (AUTO) 25 % (12-44); MEAN CORPUSCULAR HEMOGLOBIN 27 PG (25-34); MEAN CORPUSCULAR HGB CONC 32 G/DL (32-36); MEAN CORPUSCULAR VOLUME 83 FL (80-99); MEAN PLATELET VOLUME 9.2 FL (7.4-10.4); MONOCYTES # (AUTO) 0.7 X 10^3 (0.0-1.0); MONOCYTES % (AUTO) 8 % (0-12); NEUTROPHILS # (AUTO) 5.6 X 10^3 (1.8-7.8); NEUTROPHILS % (AUTO) 63 % (42-75); PLATELET COUNT 390 10^3/uL (130-400); RED CELL DISTRIBUTION WIDTH 21.4 % (10.0-14.5); WHITE BLOOD COUNT 8.9 10^3/uL (4.3-11.0)
[2020-01-24 13:36] LABS: BASOPHILS # (AUTO) 0.1 10^3/uL (0.0-0.1); BASOPHILS % (AUTO) 2 % (0-10); EOSINOPHILS # (AUTO) 0.2 10^3/uL (0.0-0.3); EOSINOPHILS % (AUTO) 3 % (0-10); HEMATOCRIT 45 % (40-54); HEMOGLOBIN 14.5 G/DL (13.3-17.7); LYMPHOCYTES # (AUTO) 1.9 X 10^3 (1.0-4.0); LYMPHOCYTES % (AUTO) 25 % (12-44); MEAN CORPUSCULAR HEMOGLOBIN 29 PG (25-34); MEAN CORPUSCULAR HGB CONC 32 G/DL (32-36); MEAN CORPUSCULAR VOLUME 89 FL (80-99); MEAN PLATELET VOLUME 9.4 FL (7.4-10.4); MONOCYTES # (AUTO) 0.7 X 10^3 (0.0-1.0); MONOCYTES % (AUTO) 9 % (0-12); NEUTROPHILS # (AUTO) 4.8 X 10^3 (1.8-7.8); NEUTROPHILS % (AUTO) 62 % (42-75); PLATELET COUNT 285 10^3/uL (130-400); RED CELL DISTRIBUTION WIDTH 23.5 % (10.0-14.5); WHITE BLOOD COUNT 7.8 10^3/uL (4.3-11.0)
[2020-01-24 13:55] LABS: ALANINE AMINOTRANSFERASE 18 U/L (0-55); ALBUMIN 4.1 GM/DL (3.2-4.5); ALKALINE PHOSPHATASE 118 U/L (40-136); BILIRUBIN,TOTAL 0.4 MG/DL (0.1-1.0); BUN/CREATININE RATIO 14; CALCIUM 9.6 MG/DL (8.5-10.1); CARBON DIOXIDE 21 MMOL/L (21-32); CHLORIDE 108 MMOL/L (98-107); CREATININE SERUM 1.18 MG/DL (0.60-1.30); GFR ESTIMATED > 60; GLUCOSE 96 MG/DL (70-105); POTASSIUM 4.3 MMOL/L (3.6-5.0); SODIUM 138 MMOL/L (135-145); TOTAL PROTEIN 7.8 GM/DL (6.4-8.2)
[2020-02-21 13:06] LABS: BASOPHILS # (AUTO) 0.1 10^3/uL (0.0-0.1); BASOPHILS % (AUTO) 1 % (0-10); EOSINOPHILS # (AUTO) 0.2 10^3/uL (0.0-0.3); EOSINOPHILS % (AUTO) 3 % (0-10); HEMATOCRIT 43 % (40-54); HEMOGLOBIN 14.3 G/DL (13.3-17.7); LYMPHOCYTES # (AUTO) 2.1 X 10^3 (1.0-4.0); LYMPHOCYTES % (AUTO) 30 % (12-44); MEAN CORPUSCULAR HEMOGLOBIN 31 PG (25-34); MEAN CORPUSCULAR HGB CONC 33 G/DL (32-36); MEAN CORPUSCULAR VOLUME 92 FL (80-99); MEAN PLATELET VOLUME 9.3 FL (7.4-10.4); MONOCYTES # (AUTO) 0.7 X 10^3 (0.0-1.0); MONOCYTES % (AUTO) 9 % (0-12); NEUTROPHILS # (AUTO) 4.1 X 10^3 (1.8-7.8); NEUTROPHILS % (AUTO) 58 % (42-75); PLATELET COUNT 263 10^3/uL (130-400); RED CELL DISTRIBUTION WIDTH 23.8 % (10.0-14.5); WHITE BLOOD COUNT 7.1 10^3/uL (4.3-11.0)
[2020-02-21 13:31] LABS: BILIRUBIN,TOTAL 0.4 MG/DL (0.1-1.0); CALCIUM 9.8 MG/DL (8.5-10.1); CREATININE SERUM 1.38 MG/DL (0.60-1.30); POTASSIUM 4.7 MMOL/L (3.6-5.0); TOTAL PROTEIN 7.9 GM/DL (6.4-8.2)
== END 2020-03-26 | disposition home or self-care (01) ==
LOC: ONC 12:28
PROVIDERS: ATTEND Internal Medicine Hematology & Oncology
DX: D45 Polycythemia vera (principal); J44.9 Chronic obstructive pulmonary disease, unspecified; E78.00 Pure hypercholesterolemia, unspecified; E11.9 Type 2 diabetes mellitus without complications; I10 Essential (primary) hypertension; F43.10 Post-traumatic stress disorder, unspecified; Z79.899 Other long term (current) drug therapy; Z90.49 Acquired absence of other specified parts of digestive tract; Z98.890 Other specified postprocedural states
CPT/HCPCS: 85025; 99195; G0463; 80053; 99213

== ENCOUNTER 2020-07-08 12:54 | Outpatient (RCR) | payer MEDICARE, OTHER ==
[2020-05-20 14:36] LABS: BASOPHILS # (AUTO) 0.1 10^3/uL (0.0-0.1); BASOPHILS % (AUTO) 1 % (0-10); EOSINOPHILS # (AUTO) 0.1 10^3/uL (0.0-0.3); EOSINOPHILS % (AUTO) 1 % (0-10); HEMATOCRIT 37 % (40-54); HEMOGLOBIN 12.7 g/dL (13.3-17.7); LYMPHOCYTES # (AUTO) 2.1 10^3/uL (1.0-4.0); LYMPHOCYTES % (AUTO) 31 % (12-44); MEAN CORPUSCULAR HEMOGLOBIN 40 pg (25-34); MEAN CORPUSCULAR HGB CONC 34 g/dL (32-36); MEAN CORPUSCULAR VOLUME 116 fL (80-99); MEAN PLATELET VOLUME 8.9 fL (9.0-12.2); MONOCYTES # (AUTO) 0.6 10^3/uL (0.0-1.0); MONOCYTES % (AUTO) 8 % (0-12); NEUTROPHILS % (AUTO) 58 % (42-75); PLATELET COUNT 241 10^3/uL (130-400); WHITE BLOOD COUNT 6.9 10^3/uL (4.3-11.0)
[2020-05-20 14:55] LABS: ALBUMIN 4.1 GM/DL (3.2-4.5); BILIRUBIN,TOTAL 0.5 MG/DL (0.1-1.0); CALCIUM 9.2 MG/DL (8.5-10.1); CREATININE SERUM 1.3 MG/DL (0.60-1.30); POTASSIUM 4.3 MMOL/L (3.6-5.0)
[~2020-07-08 12:54] MED LIST changes: +ASPI-1238 PO; -ASPI-983 PO
[2020-07-08 13:14] LABS: BASOPHILS # (AUTO) 0.1 10^3/uL (0.0-0.1); BASOPHILS % (AUTO) 1 % (0-10); EOSINOPHILS # (AUTO) 0.1 10^3/uL (0.0-0.3); EOSINOPHILS % (AUTO) 2 % (0-10); HEMATOCRIT 37 % (40-54); HEMOGLOBIN 12.5 g/dL (13.3-17.7); LYMPHOCYTES % (AUTO) 30 % (12-44); MEAN CORPUSCULAR HEMOGLOBIN 39 pg (25-34); MEAN CORPUSCULAR HGB CONC 34 g/dL (32-36); MEAN CORPUSCULAR VOLUME 114 fL (80-99); MEAN PLATELET VOLUME 9.1 fL (9.0-12.2); MONOCYTES # (AUTO) 0.6 10^3/uL (0.0-1.0); MONOCYTES % (AUTO) 9 % (0-12); NEUTROPHILS # (AUTO) 3.8 10^3/uL (1.8-7.8); NEUTROPHILS % (AUTO) 58 % (42-75); PLATELET COUNT 260 10^3/uL (130-400); WHITE BLOOD COUNT 6.7 10^3/uL (4.3-11.0)
[2020-07-08 13:38] LABS: BILIRUBIN,TOTAL 0.4 MG/DL (0.1-1.0); CALCIUM 9.3 MG/DL (8.5-10.1); CREATININE SERUM 1.31 MG/DL (0.60-1.30); POTASSIUM 4.3 MMOL/L (3.6-5.0); TOTAL PROTEIN 7.8 GM/DL (6.4-8.2)
== END 2020-08-18 | disposition home or self-care (01) ==
LOC: ONC 12:54
PROVIDERS: ATTEND Internal Medicine Hematology & Oncology
DX: D45 Polycythemia vera (principal); J44.9 Chronic obstructive pulmonary disease, unspecified; E78.00 Pure hypercholesterolemia, unspecified; E11.9 Type 2 diabetes mellitus without complications; I10 Essential (primary) hypertension; F43.10 Post-traumatic stress disorder, unspecified; Z79.899 Other long term (current) drug therapy; Z90.49 Acquired absence of other specified parts of digestive tract; Z98.890 Other specified postprocedural states
CPT/HCPCS: 80053; 85025; G0463; 99213

== ENCOUNTER 2020-12-09 13:07 | Outpatient (RCR) | payer MEDICARE, OTHER ==
[2020-09-16 14:24] LABS: BASOPHILS # (AUTO) 0.1 10^3/uL (0.0-0.1); BASOPHILS % (AUTO) 1 % (0-10); EOSINOPHILS # (AUTO) 0.2 10^3/uL (0.0-0.3); EOSINOPHILS % (AUTO) 2 % (0-10); HEMATOCRIT 38 % (40-54); HEMOGLOBIN 12.7 g/dL (13.3-17.7); LYMPHOCYTES # (AUTO) 2.4 10^3/uL (1.0-4.0); LYMPHOCYTES % (AUTO) 30 % (12-44); MEAN CORPUSCULAR HEMOGLOBIN 36 pg (25-34); MEAN CORPUSCULAR HGB CONC 34 g/dL (32-36); MEAN CORPUSCULAR VOLUME 107 fL (80-99); MEAN PLATELET VOLUME 9.1 fL (9.0-12.2); MONOCYTES # (AUTO) 0.7 10^3/uL (0.0-1.0); MONOCYTES % (AUTO) 9 % (0-12); NEUTROPHILS # (AUTO) 4.5 10^3/uL (1.8-7.8); NEUTROPHILS % (AUTO) 57 % (42-75); PLATELET COUNT 298 10^3/uL (130-400); WHITE BLOOD COUNT 7.9 10^3/uL (4.3-11.0)
[2020-09-16 14:52] LABS: BILIRUBIN,TOTAL 0.3 MG/DL (0.1-1.0); CALCIUM 9.5 MG/DL (8.5-10.1); CREATININE SERUM 1.34 MG/DL (0.60-1.30); TOTAL PROTEIN 7.7 GM/DL (6.4-8.2)
[2020-12-09 13:21] LABS: BASOPHILS # (AUTO) 0.1 10^3/uL (0.0-0.1); BASOPHILS % (AUTO) 1 % (0-10); EOSINOPHILS # (AUTO) 0.5 10^3/uL (0.0-0.3); EOSINOPHILS % (AUTO) 6 % (0-10); HEMATOCRIT 42 % (40-54); HEMOGLOBIN 13.9 g/dL (13.3-17.7); LYMPHOCYTES # (AUTO) 2.1 10^3/uL (1.0-4.0); LYMPHOCYTES % (AUTO) 24 % (12-44); MEAN CORPUSCULAR HEMOGLOBIN 34 pg (25-34); MEAN CORPUSCULAR HGB CONC 33 g/dL (32-36); MEAN CORPUSCULAR VOLUME 104 fL (80-99); MEAN PLATELET VOLUME 9.6 fL (9.0-12.2); MONOCYTES # (AUTO) 0.6 10^3/uL (0.0-1.0); MONOCYTES % (AUTO) 7 % (0-12); NEUTROPHILS # (AUTO) 5.4 10^3/uL (1.8-7.8); NEUTROPHILS % (AUTO) 61 % (42-75); PLATELET COUNT 370 10^3/uL (130-400); WHITE BLOOD COUNT 8.8 10^3/uL (4.3-11.0)
[2020-12-09 13:39] LABS: ALBUMIN 3.9 GM/DL (3.2-4.5); BILIRUBIN,TOTAL 0.4 MG/DL (0.1-1.0); CALCIUM 9.1 MG/DL (8.5-10.1); CREATININE SERUM 1.3 MG/DL (0.60-1.30); POTASSIUM 3.9 MMOL/L (3.6-5.0); TOTAL PROTEIN 7.6 GM/DL (6.4-8.2)
== END 2020-12-15 | disposition home or self-care (01) ==
LOC: ONC 13:07
PROVIDERS: ATTEND Internal Medicine Hematology & Oncology
DX: D45 Polycythemia vera (principal); J44.9 Chronic obstructive pulmonary disease, unspecified; E78.00 Pure hypercholesterolemia, unspecified; E11.9 Type 2 diabetes mellitus without complications; I10 Essential (primary) hypertension; D50.9 Iron deficiency anemia, unspecified; F43.10 Post-traumatic stress disorder, unspecified; Z79.899 Other long term (current) drug therapy; Z90.49 Acquired absence of other specified parts of digestive tract; Z98.890 Other specified postprocedural states
CPT/HCPCS: 80053; 85025; G0463; 82728; 83540; 83550; 99213

== ENCOUNTER → 2021-03-17 | Outpatient (CLI) | payer MEDICARE, OTHER ==
[2021-03-17 13:38] LABS: BASOPHILS # (AUTO) 0.1 10^3/uL (0.0-0.1); BASOPHILS % (AUTO) 1 % (0-10); EOSINOPHILS # (AUTO) 0.2 10^3/uL (0.0-0.3); EOSINOPHILS % (AUTO) 3 % (0-10); HEMATOCRIT 42 % (40-54); HEMOGLOBIN 13.8 g/dL (13.3-17.7); LYMPHOCYTES # (AUTO) 2.3 10^3/uL (1.0-4.0); LYMPHOCYTES % (AUTO) 26 % (12-44); MEAN CORPUSCULAR HEMOGLOBIN 35 pg (25-34); MEAN CORPUSCULAR HGB CONC 33 g/dL (32-36); MEAN CORPUSCULAR VOLUME 105 fL (80-99); MEAN PLATELET VOLUME 9.8 fL (9.0-12.2); MONOCYTES # (AUTO) 0.7 10^3/uL (0.0-1.0); MONOCYTES % (AUTO) 8 % (0-12); NEUTROPHILS # (AUTO) 5.3 10^3/uL (1.8-7.8); NEUTROPHILS % (AUTO) 61 % (42-75); PLATELET COUNT 434 10^3/uL (130-400); WHITE BLOOD COUNT 8.7 10^3/uL (4.3-11.0)
[2021-03-17 14:00] LABS: ALBUMIN 3.9 GM/DL (3.2-4.5); BILIRUBIN,TOTAL 0.3 MG/DL (0.1-1.0); CALCIUM 9.7 MG/DL (8.5-10.1); CREATININE SERUM 1.18 MG/DL (0.60-1.30); POTASSIUM 4.1 MMOL/L (3.6-5.0); TOTAL PROTEIN 7.7 GM/DL (6.4-8.2)
== END ==
LOC: EDSTATUS 12-16 12:54 → ONC 13:29
PROVIDERS: ATTEND Internal Medicine Hematology & Oncology
DX: D45 Polycythemia vera (principal); D64.9 Anemia, unspecified; Z79.82 Long term (current) use of aspirin; Z79.899 Other long term (current) drug therapy
CPT/HCPCS: 80053; 85025; G0463; 99213

== ENCOUNTER → 2021-06-23 | Outpatient (CLI) | payer MEDICARE, OTHER ==
[2021-06-23 13:18] LABS: BASOPHILS # (AUTO) 0.2 10^3/uL (0.0-0.1); BASOPHILS % (AUTO) 2 % (0-10); EOSINOPHILS # (AUTO) 0.3 10^3/uL (0.0-0.3); EOSINOPHILS % (AUTO) 2 % (0-10); HEMATOCRIT 47 % (40-54); HEMOGLOBIN 15.4 g/dL (13.3-17.7); LYMPHOCYTES # (AUTO) 2.9 10^3/uL (1.0-4.0); LYMPHOCYTES % (AUTO) 24 % (12-44); MEAN CORPUSCULAR HEMOGLOBIN 34 pg (25-34); MEAN CORPUSCULAR HGB CONC 33 g/dL (32-36); MEAN CORPUSCULAR VOLUME 103 fL (80-99); MEAN PLATELET VOLUME 9.4 fL (9.0-12.2); MONOCYTES # (AUTO) 1.1 10^3/uL (0.0-1.0); MONOCYTES % (AUTO) 9 % (0-12); NEUTROPHILS # (AUTO) 7.4 10^3/uL (1.8-7.8); NEUTROPHILS % (AUTO) 62 % (42-75); PLATELET COUNT 524 10^3/uL (130-400); WHITE BLOOD COUNT 12.1 10^3/uL (4.3-11.0)
[2021-06-23 13:36] LABS: BILIRUBIN,TOTAL 0.4 MG/DL (0.1-1.0); CALCIUM 9.7 MG/DL (8.5-10.1); CREATININE SERUM 1.38 MG/DL (0.60-1.30); POTASSIUM 4.6 MMOL/L (3.6-5.0); TOTAL PROTEIN 7.9 GM/DL (6.4-8.2)
== END ==
LOC: ONC 13:07
PROVIDERS: ATTEND Internal Medicine Hematology & Oncology
DX: D64.9 Anemia, unspecified (principal); D45 Polycythemia vera
CPT/HCPCS: 80053; 82728; 83540; 83550; 85025; G0463; 99213

== ENCOUNTER → 2021-08-25 | Outpatient (CLI) | payer MEDICARE, OTHER ==
[2021-08-25 13:00] LABS: BASOPHILS # (AUTO) 0.1 10^3/uL (0.0-0.1); BASOPHILS % (AUTO) 2 % (0-10); EOSINOPHILS # (AUTO) 0.2 10^3/uL (0.0-0.3); EOSINOPHILS % (AUTO) 3 % (0-10); HEMATOCRIT 43 % (40-54); HEMOGLOBIN 14.3 g/dL (13.3-17.7); LYMPHOCYTES # (AUTO) 2.3 10^3/uL (1.0-4.0); LYMPHOCYTES % (AUTO) 26 % (12-44); MEAN CORPUSCULAR HEMOGLOBIN 34 pg (25-34); MEAN CORPUSCULAR HGB CONC 33 g/dL (32-36); MEAN CORPUSCULAR VOLUME 103 fL (80-99); MEAN PLATELET VOLUME 9.8 fL (9.0-12.2); MONOCYTES # (AUTO) 0.6 10^3/uL (0.0-1.0); MONOCYTES % (AUTO) 7 % (0-12); NEUTROPHILS # (AUTO) 5.4 10^3/uL (1.8-7.8); NEUTROPHILS % (AUTO) 62 % (42-75); PLATELET COUNT 405 10^3/uL (130-400); WHITE BLOOD COUNT 8.6 10^3/uL (4.3-11.0)
[2021-08-25 13:24] LABS: ALBUMIN 3.8 GM/DL (3.2-4.5); BILIRUBIN,TOTAL 0.5 MG/DL (0.1-1.0); CALCIUM 8.8 MG/DL (8.5-10.1); CREATININE SERUM 1.36 MG/DL (0.60-1.30); POTASSIUM 4.3 MMOL/L (3.6-5.0); TOTAL PROTEIN 7.6 GM/DL (6.4-8.2)
== END ==
LOC: ONC 12:25
PROVIDERS: ATTEND Internal Medicine Hematology & Oncology
DX: D64.9 Anemia, unspecified (principal); D45 Polycythemia vera; I10 Essential (primary) hypertension; J44.9 Chronic obstructive pulmonary disease, unspecified; E11.9 Type 2 diabetes mellitus without complications; E78.00 Pure hypercholesterolemia, unspecified; E66.9 Obesity, unspecified
CPT/HCPCS: 80053; 82728; 83540; 83550; 85025; G0463; 99213

== ENCOUNTER 2021-09-24 10:03 | Outpatient (RCR) | payer MEDICARE, OTHER ==
[2021-09-24 10:09] LABS: BASOPHILS # (AUTO) 0.1 10^3/uL (0.0-0.1); BASOPHILS % (AUTO) 2 % (0-10); EOSINOPHILS # (AUTO) 0.2 10^3/uL (0.0-0.3); EOSINOPHILS % (AUTO) 3 % (0-10); HEMATOCRIT 44 % (40-54); HEMOGLOBIN 14.6 g/dL (13.3-17.7); LYMPHOCYTES # (AUTO) 1.8 10^3/uL (1.0-4.0); LYMPHOCYTES % (AUTO) 21 % (12-44); MEAN CORPUSCULAR HEMOGLOBIN 35 pg (25-34); MEAN CORPUSCULAR HGB CONC 33 g/dL (32-36); MEAN CORPUSCULAR VOLUME 105 fL (80-99); MEAN PLATELET VOLUME 9.2 fL (9.0-12.2); MONOCYTES # (AUTO) 0.8 10^3/uL (0.0-1.0); MONOCYTES % (AUTO) 10 % (0-12); NEUTROPHILS # (AUTO) 5.6 10^3/uL (1.8-7.8); NEUTROPHILS % (AUTO) 64 % (42-75); PLATELET COUNT 356 10^3/uL (130-400); WHITE BLOOD COUNT 8.7 10^3/uL (4.3-11.0)
== END 2021-10-22 09:45 | disposition home or self-care (01) ==
LOC: ONC 10:03
PROVIDERS: ATTEND Internal Medicine Hematology & Oncology
DX: Z01.89 Encounter for other specified special examinations (principal)
CPT/HCPCS: 36415; 85025

== ENCOUNTER 2021-10-26 12:57 | Outpatient (RCR) | payer MEDICARE, OTHER ==
[2021-10-26 13:05] LABS: BASOPHILS # (AUTO) 0.1 10^3/uL (0.0-0.1); BASOPHILS % (AUTO) 2 % (0-10); EOSINOPHILS # (AUTO) 0.2 10^3/uL (0.0-0.3); EOSINOPHILS % (AUTO) 3 % (0-10); HEMATOCRIT 41 % (40-54); HEMOGLOBIN 13.5 g/dL (13.3-17.7); LYMPHOCYTES % (AUTO) 25 % (12-44); MEAN CORPUSCULAR HEMOGLOBIN 36 pg (25-34); MEAN CORPUSCULAR HGB CONC 33 g/dL (32-36); MEAN CORPUSCULAR VOLUME 107 fL (80-99); MEAN PLATELET VOLUME 9.3 fL (9.0-12.2); MONOCYTES # (AUTO) 0.6 10^3/uL (0.0-1.0); MONOCYTES % (AUTO) 8 % (0-12); NEUTROPHILS # (AUTO) 5.1 10^3/uL (1.8-7.8); NEUTROPHILS % (AUTO) 63 % (42-75); PLATELET COUNT 338 10^3/uL (130-400); WHITE BLOOD COUNT 8.1 10^3/uL (4.3-11.0)
[2021-10-26 13:27] LABS: BILIRUBIN,TOTAL 0.5 MG/DL (0.1-1.0); CALCIUM 9.3 MG/DL (8.5-10.1); CREATININE SERUM 1.33 MG/DL (0.60-1.30); POTASSIUM 4.2 MMOL/L (3.6-5.0); TOTAL PROTEIN 7.7 GM/DL (6.4-8.2)
== END 2021-11-21 | disposition home or self-care (01) ==
LOC: ONC 12:57
PROVIDERS: ATTEND Internal Medicine Hematology & Oncology
DX: D45 Polycythemia vera (principal); D64.9 Anemia, unspecified; I25.10 Atherosclerotic heart disease of native coronary artery without angina pectoris; E11.9 Type 2 diabetes mellitus without complications; I10 Essential (primary) hypertension; E78.00 Pure hypercholesterolemia, unspecified; E66.9 Obesity, unspecified
CPT/HCPCS: 80053; 85025; G0463; 36415; 99213

== ENCOUNTER 2022-01-11 14:18 | Outpatient (RCR) | payer MEDICARE, OTHER ==
[2022-01-08 10:35] LABS: BASOPHILS # (AUTO) 0.1 10^3/uL (0.0-0.1); BASOPHILS % (AUTO) 2 % (0-10); EOSINOPHILS # (AUTO) 0.2 10^3/uL (0.0-0.3); EOSINOPHILS % (AUTO) 3 % (0-10); HEMATOCRIT 44 % (40-54); HEMOGLOBIN 14.4 g/dL (13.3-17.7); LYMPHOCYTES # (AUTO) 1.8 10^3/uL (1.0-4.0); LYMPHOCYTES % (AUTO) 24 % (12-44); MEAN CORPUSCULAR HEMOGLOBIN 36 pg (25-34); MEAN CORPUSCULAR HGB CONC 33 g/dL (32-36); MEAN CORPUSCULAR VOLUME 110 fL (80-99); MEAN PLATELET VOLUME 9.4 fL (9.0-12.2); MONOCYTES # (AUTO) 0.7 10^3/uL (0.0-1.0); MONOCYTES % (AUTO) 9 % (0-12); NEUTROPHILS # (AUTO) 4.5 10^3/uL (1.8-7.8); NEUTROPHILS % (AUTO) 62 % (42-75); PLATELET COUNT 324 10^3/uL (130-400); WHITE BLOOD COUNT 7.4 10^3/uL (4.3-11.0)
[2022-01-08 10:56] LABS: ALBUMIN 4.2 GM/DL (3.2-4.5); BILIRUBIN,TOTAL 0.6 MG/DL (0.1-1.0); CALCIUM 9.8 MG/DL (8.5-10.1); CREATININE SERUM 1.29 MG/DL (0.60-1.30); POTASSIUM 4.4 MMOL/L (3.6-5.0); TOTAL PROTEIN 8.1 GM/DL (6.4-8.2)
== END 2022-01-21 | disposition home or self-care (01) ==
LOC: ONC 14:18
PROVIDERS: ATTEND Internal Medicine Hematology & Oncology
DX: D45 Polycythemia vera (principal); D64.9 Anemia, unspecified; I25.10 Atherosclerotic heart disease of native coronary artery without angina pectoris; E11.9 Type 2 diabetes mellitus without complications; I10 Essential (primary) hypertension; E78.00 Pure hypercholesterolemia, unspecified; E66.9 Obesity, unspecified
CPT/HCPCS: 36415; 80053; 85025; 99213

== ENCOUNTER 2022-04-14 09:47 | Outpatient (RCR) | payer MEDICARE, OTHER ==
[2022-04-13 12:13] LABS: BASOPHILS # (AUTO) 0.1 10^3/uL (0.0-0.1); BASOPHILS % (AUTO) 1 % (0-10); EOSINOPHILS # (AUTO) 0.2 10^3/uL (0.0-0.3); EOSINOPHILS % (AUTO) 3 % (0-10); HEMATOCRIT 42 % (40-54); HEMOGLOBIN 13.9 g/dL (13.3-17.7); LYMPHOCYTES # (AUTO) 1.7 10^3/uL (1.0-4.0); LYMPHOCYTES % (AUTO) 27 % (12-44); MEAN CORPUSCULAR HEMOGLOBIN 36 pg (25-34); MEAN CORPUSCULAR HGB CONC 33 g/dL (32-36); MEAN CORPUSCULAR VOLUME 109 fL (80-99); MEAN PLATELET VOLUME 9.4 fL (9.0-12.2); MONOCYTES # (AUTO) 0.4 10^3/uL (0.0-1.0); MONOCYTES % (AUTO) 6 % (0-12); NEUTROPHILS % (AUTO) 63 % (42-75); PLATELET COUNT 303 10^3/uL (130-400); WHITE BLOOD COUNT 6.3 10^3/uL (4.3-11.0)
[2022-04-13 12:35] LABS: ALBUMIN 4.1 GM/DL (3.2-4.5); BILIRUBIN,TOTAL 0.5 MG/DL (0.1-1.0); CALCIUM 9.5 MG/DL (8.5-10.1); CREATININE SERUM 1.33 MG/DL (0.60-1.30); POTASSIUM 4.2 MMOL/L (3.6-5.0); TOTAL PROTEIN 7.5 GM/DL (6.4-8.2)
== END 2022-04-23 | disposition home or self-care (01) ==
LOC: ONC 09:47
PROVIDERS: ATTEND Internal Medicine Hematology & Oncology
DX: D45 Polycythemia vera (principal); D64.9 Anemia, unspecified; I25.10 Atherosclerotic heart disease of native coronary artery without angina pectoris; E11.9 Type 2 diabetes mellitus without complications; I10 Essential (primary) hypertension; E78.00 Pure hypercholesterolemia, unspecified; E66.9 Obesity, unspecified
CPT/HCPCS: 36415; 80053; 85025; 99213

== ENCOUNTER → 2022-05-24 | Outpatient (RCR) | payer MEDICARE, OTHER ==
[2022-05-24 10:13] LABS: BASOPHILS # (AUTO) 0.1 10^3/uL (0.0-0.1); BASOPHILS % (AUTO) 2 % (0-10); EOSINOPHILS # (AUTO) 0.1 10^3/uL (0.0-0.3); EOSINOPHILS % (AUTO) 2 % (0-10); HEMATOCRIT 41 % (40-54); HEMOGLOBIN 13.7 g/dL (13.3-17.7); LYMPHOCYTES # (AUTO) 1.7 10^3/uL (1.0-4.0); LYMPHOCYTES % (AUTO) 27 % (12-44); MEAN CORPUSCULAR HEMOGLOBIN 36 pg (25-34); MEAN CORPUSCULAR HGB CONC 33 g/dL (32-36); MEAN CORPUSCULAR VOLUME 108 fL (80-99); MEAN PLATELET VOLUME 9.2 fL (9.0-12.2); MONOCYTES # (AUTO) 0.5 10^3/uL (0.0-1.0); MONOCYTES % (AUTO) 9 % (0-12); NEUTROPHILS # (AUTO) 3.8 10^3/uL (1.8-7.8); NEUTROPHILS % (AUTO) 61 % (42-75); PLATELET COUNT 304 10^3/uL (130-400); WHITE BLOOD COUNT 6.3 10^3/uL (4.3-11.0)
[2022-05-24 10:36] LABS: ALBUMIN 4.1 GM/DL (3.2-4.5); BILIRUBIN,TOTAL 0.4 MG/DL (0.1-1.0); CALCIUM 9.7 MG/DL (8.5-10.1); CREATININE SERUM 1.27 MG/DL (0.60-1.30); POTASSIUM 4.5 MMOL/L (3.6-5.0); TOTAL PROTEIN 7.8 GM/DL (6.4-8.2)
== END | disposition home or self-care (01) ==
LOC: ONC 09:41
PROVIDERS: ATTEND Internal Medicine Hematology & Oncology
DX: D45 Polycythemia vera (principal); D64.9 Anemia, unspecified; I25.10 Atherosclerotic heart disease of native coronary artery without angina pectoris; E11.9 Type 2 diabetes mellitus without complications; I10 Essential (primary) hypertension; E78.00 Pure hypercholesterolemia, unspecified; E66.9 Obesity, unspecified
CPT/HCPCS: 36415; 80053; 85025

== ENCOUNTER 2022-05-31 09:26 | Outpatient (RCR) | payer MEDICARE, OTHER | END 2022-06-23 | disposition home or self-care (01) | LOC: ONC 09:26 | PROVIDERS: ATTEND Internal Medicine Hematology & Oncology | DX: D45 Polycythemia vera (principal); D64.9 Anemia, unspecified; I25.10 Atherosclerotic heart disease of native coronary artery without angina pectoris; E11.9 Type 2 diabetes mellitus without complications; I10 Essential (primary) hypertension; E78.00 Pure hypercholesterolemia, unspecified; E66.9 Obesity, unspecified | CPT/HCPCS: 99213 ==

== ENCOUNTER 2022-08-23 10:52 | Outpatient (RCR) | payer MEDICARE, OTHER ==
[2022-08-19 10:31] LABS: BASOPHILS # (AUTO) 0.1 10^3/uL (0.0-0.1); BASOPHILS % (AUTO) 2 % (0-10); EOSINOPHILS # (AUTO) 0.2 10^3/uL (0.0-0.3); EOSINOPHILS % (AUTO) 2 % (0-10); HEMATOCRIT 42 % (40-54); HEMOGLOBIN 13.9 g/dL (13.3-17.7); LYMPHOCYTES # (AUTO) 1.9 10^3/uL (1.0-4.0); LYMPHOCYTES % (AUTO) 23 % (12-44); MEAN CORPUSCULAR HEMOGLOBIN 36 pg (25-34); MEAN CORPUSCULAR HGB CONC 33 g/dL (32-36); MEAN CORPUSCULAR VOLUME 110 fL (80-99); MEAN PLATELET VOLUME 9.5 fL (9.0-12.2); MONOCYTES # (AUTO) 0.8 10^3/uL (0.0-1.0); MONOCYTES % (AUTO) 10 % (0-12); NEUTROPHILS # (AUTO) 5.2 10^3/uL (1.8-7.8); NEUTROPHILS % (AUTO) 63 % (42-75); PLATELET COUNT 343 10^3/uL (130-400); WHITE BLOOD COUNT 8.2 10^3/uL (4.3-11.0)
[2022-08-19 10:52] LABS: ALBUMIN 4.1 GM/DL (3.2-4.5); BILIRUBIN,TOTAL 0.4 MG/DL (0.1-1.0); CALCIUM 9.5 MG/DL (8.5-10.1); CREATININE SERUM 1.21 MG/DL (0.60-1.30); POTASSIUM 4.4 MMOL/L (3.6-5.0); TOTAL PROTEIN 7.8 GM/DL (6.4-8.2)
== END 2022-08-24 | disposition home or self-care (01) ==
LOC: ONC 10:52
PROVIDERS: ATTEND Internal Medicine Hematology & Oncology
DX: D75.1 Secondary polycythemia (principal); I25.10 Atherosclerotic heart disease of native coronary artery without angina pectoris; Z95.5 Presence of coronary angioplasty implant and graft; D64.9 Anemia, unspecified; E11.9 Type 2 diabetes mellitus without complications; I10 Essential (primary) hypertension; E78.5 Hyperlipidemia, unspecified; J44.9 Chronic obstructive pulmonary disease, unspecified; F43.10 Post-traumatic stress disorder, unspecified; N28.9 Disorder of kidney and ureter, unspecified; F17.210 Nicotine dependence, cigarettes, uncomplicated; Z57.4 Occupational exposure to toxic agents in agriculture; Z79.899 Other long term (current) drug therapy; Z79.82 Long term (current) use of aspirin; Z79.02 Long term (current) use of antithrombotics/antiplatelets; Z79.84 Long term (current) use of oral hypoglycemic drugs
CPT/HCPCS: 36415; 80053; 85025; 99213

== ENCOUNTER 2022-10-18 10:52 | Outpatient (RCR) | payer MEDICARE, OTHER ==
[2022-10-14 09:58] LABS: BASOPHILS # (AUTO) 0.1 10^3/uL (0.0-0.1); BASOPHILS % (AUTO) 2 % (0-10); EOSINOPHILS # (AUTO) 0.1 10^3/uL (0.0-0.3); EOSINOPHILS % (AUTO) 2 % (0-10); HEMATOCRIT 40 % (40-54); HEMOGLOBIN 13.2 g/dL (13.3-17.7); LYMPHOCYTES # (AUTO) 1.5 10^3/uL (1.0-4.0); LYMPHOCYTES % (AUTO) 23 % (12-44); MEAN CORPUSCULAR HEMOGLOBIN 36 pg (25-34); MEAN CORPUSCULAR HGB CONC 33 g/dL (32-36); MEAN CORPUSCULAR VOLUME 109 fL (80-99); MEAN PLATELET VOLUME 9.6 fL (9.0-12.2); MONOCYTES # (AUTO) 0.6 10^3/uL (0.0-1.0); MONOCYTES % (AUTO) 8 % (0-12); NEUTROPHILS # (AUTO) 4.4 10^3/uL (1.8-7.8); NEUTROPHILS % (AUTO) 65 % (42-75); PLATELET COUNT 264 10^3/uL (130-400); WHITE BLOOD COUNT 6.8 10^3/uL (4.3-11.0)
== END 2022-10-22 | disposition home or self-care (01) ==
LOC: ONC 10:52
PROVIDERS: ATTEND Internal Medicine Hematology & Oncology
DX: D75.1 Secondary polycythemia (principal); I25.10 Atherosclerotic heart disease of native coronary artery without angina pectoris; Z95.5 Presence of coronary angioplasty implant and graft; D64.9 Anemia, unspecified; E11.9 Type 2 diabetes mellitus without complications; I10 Essential (primary) hypertension; E78.5 Hyperlipidemia, unspecified; J44.9 Chronic obstructive pulmonary disease, unspecified; F43.10 Post-traumatic stress disorder, unspecified; N28.9 Disorder of kidney and ureter, unspecified; F17.210 Nicotine dependence, cigarettes, uncomplicated; Z79.899 Other long term (current) drug therapy; Z79.82 Long term (current) use of aspirin; Z79.02 Long term (current) use of antithrombotics/antiplatelets; Z79.84 Long term (current) use of oral hypoglycemic drugs
CPT/HCPCS: 36415; 82728; 83540; 83550; 85025

== ENCOUNTER 2022-11-18 10:07 | Outpatient (RCR) | payer MEDICARE, OTHER ==
[2022-11-15 10:51] LABS: BASOPHILS # (AUTO) 0.1 10^3/uL (0.0-0.1); BASOPHILS % (AUTO) 1 % (0-10); EOSINOPHILS # (AUTO) 0.1 10^3/uL (0.0-0.3); EOSINOPHILS % (AUTO) 2 % (0-10); HEMATOCRIT 40 % (40-54); HEMOGLOBIN 13.4 g/dL (13.3-17.7); LYMPHOCYTES # (AUTO) 1.8 10^3/uL (1.0-4.0); LYMPHOCYTES % (AUTO) 29 % (12-44); MEAN CORPUSCULAR HEMOGLOBIN 36 pg (25-34); MEAN CORPUSCULAR HGB CONC 34 g/dL (32-36); MEAN CORPUSCULAR VOLUME 106 fL (80-99); MEAN PLATELET VOLUME 9.4 fL (9.0-12.2); MONOCYTES # (AUTO) 0.5 10^3/uL (0.0-1.0); MONOCYTES % (AUTO) 8 % (0-12); NEUTROPHILS # (AUTO) 3.6 10^3/uL (1.8-7.8); NEUTROPHILS % (AUTO) 58 % (42-75); PLATELET COUNT 318 10^3/uL (130-400); WHITE BLOOD COUNT 6.2 10^3/uL (4.3-11.0)
[2022-11-15 11:12] LABS: ALBUMIN 4.1 GM/DL (3.2-4.5); BILIRUBIN,TOTAL 0.5 MG/DL (0.1-1.0); CALCIUM 8.6 MG/DL (8.5-10.1); CREATININE SERUM 1.15 MG/DL (0.60-1.30); POTASSIUM 4.1 MMOL/L (3.6-5.0); TOTAL PROTEIN 7.7 GM/DL (6.4-8.2)
== END 2022-11-21 | disposition home or self-care (01) ==
LOC: ONC 10:07
PROVIDERS: ATTEND Internal Medicine Hematology & Oncology
DX: D75.1 Secondary polycythemia (principal); I25.10 Atherosclerotic heart disease of native coronary artery without angina pectoris; Z95.5 Presence of coronary angioplasty implant and graft
CPT/HCPCS: 36415; 80053; 82728; 83540; 83550; 85025

== ENCOUNTER 2023-02-17 09:56 | Outpatient (RCR) | payer MEDICARE, OTHER ==
[2023-02-14 11:38] LABS: BASOPHILS # (AUTO) 0.1 10^3/uL (0.0-0.1); BASOPHILS % (AUTO) 1 % (0-10); EOSINOPHILS # (AUTO) 0.1 10^3/uL (0.0-0.3); EOSINOPHILS % (AUTO) 2 % (0-10); HEMATOCRIT 40 % (40-54); HEMOGLOBIN 13.6 g/dL (13.3-17.7); LYMPHOCYTES # (AUTO) 1.5 10^3/uL (1.0-4.0); LYMPHOCYTES % (AUTO) 24 % (12-44); MEAN CORPUSCULAR HEMOGLOBIN 36 pg (25-34); MEAN CORPUSCULAR HGB CONC 34 g/dL (32-36); MEAN CORPUSCULAR VOLUME 108 fL (80-99); MEAN PLATELET VOLUME 9.6 fL (9.0-12.2); MONOCYTES # (AUTO) 0.5 10^3/uL (0.0-1.0); MONOCYTES % (AUTO) 8 % (0-12); NEUTROPHILS % (AUTO) 64 % (42-75); PLATELET COUNT 287 10^3/uL (130-400); WHITE BLOOD COUNT 6.3 10^3/uL (4.3-11.0)
[2023-02-14 11:57] LABS: ALBUMIN 4.2 GM/DL (3.2-4.5); BILIRUBIN,TOTAL 0.6 MG/DL (0.1-1.0); CALCIUM 9.3 MG/DL (8.5-10.1); CREATININE SERUM 1.25 MG/DL (0.60-1.30); POTASSIUM 4.1 MMOL/L (3.6-5.0); TOTAL PROTEIN 7.8 GM/DL (6.4-8.2)
== END 2023-02-21 | disposition home or self-care (01) ==
LOC: ONC 09:56
PROVIDERS: ATTEND Internal Medicine Hematology & Oncology
DX: D75.1 Secondary polycythemia (principal); I25.10 Atherosclerotic heart disease of native coronary artery without angina pectoris; Z95.5 Presence of coronary angioplasty implant and graft
CPT/HCPCS: 36415; 80053; 85025